=== PATIENT | male | born 1995 | race Two or more races ===

== ENCOUNTER 2019-02-27 06:33 | Emergency (ER) | payer OTHER ==
[~2019-02-27] VITALS: Ht 165.1 cm; Wt 65.8 kg
[2019-02-27 06:40] VITALS: BP 110/64
[2019-02-27] MEDS ORDERED: TDAP [DIPH/PERTUSSIS/TET] 0.5 ML VIAL IM ONE ×2 (06:58→07:00)
[2019-02-27] MEDS ORDERED: BACI/NEOM/POLY B OINT PKT 1 UDPKT PACKET TP ONE (07:00)
--- NOTE | 2019-02-27 07:15 | NUR ---
scalp laceration was cleaned with NS and ATB ointment appiled as ordered.
== END 2019-02-27 07:17 | disposition home or self-care (01) ==
LOC: ER 06:37
DX: S01.01XA Laceration without foreign body of scalp, initial encounter (principal); F10.10 Alcohol abuse, uncomplicated; F17.200 Nicotine dependence, unspecified, uncomplicated; Y90.9 Presence of alcohol in blood, level not specified; V49.49XA Driver injured in collision with other motor vehicles in traffic accident, initial encounter; Y93.89 Activity, other specified; Y92.488 Other paved roadways as the place of occurrence of the external cause; Y99.8 Other external cause status
CPT/HCPCS: 90471; 90715; 99283; A6403

== ENCOUNTER 2020-01-09 12:17 | Emergency (ER) | payer OTHER ==
[~2020-01-09] VITALS: Ht 165.1 cm; Wt 67.6 kg
--- NOTE | 2020-01-09 12:28 | NUR ---
came in for blurred vision x 1 month, B 20/200, R, 20/200, L can't see, to Er bed 10, hooked to monitor, warm blanket provided, waiting MD green
--- NOTE | 2020-01-09 12:47 | NUR ---
Dr Alfaro at bedside for eval
--- NOTE | 2020-01-09 13:14 | NUR ---
Patient discharged to home in stable condition. Written and verbal after care instructions given. Patient verbalizes understanding of instruction.
[2020-01-09 13:20] VITALS: BP 124/80
== END 2020-01-09 13:15 | disposition home or self-care (01) ==
LOC: ER 12:21
DX: H53.8 Other visual disturbances (principal)